=== PATIENT | female | born 1955 | race Caucasian/White ===

== ENCOUNTER 2017-09-26 18:23 | Emergency (ER) | payer BC ==
[2017-09-26 19:47] VITALS: BP 139/81
[2017-09-26] MEDS ORDERED: Ketorolac INJ* 60 MG/2 ML VIAL IM ONE (20:43)
[2017-09-26] MEDS ORDERED: predniSONE TAB* 20 MG PO ONE (20:43)
--- NOTE | 2017-09-26 20:51 | UC ---
Shoulder Pain HPI - HPI Summary HPI Summary: Pt c/o right shoulder and hand pain that began 4 days ago and now is a "50 out of 10 pain level". Pt states that she has arthritis and sometimes "it flares like this". - History of Current Complaint Chief Complaint: UCUpperExtremity Stated Complaint: RIGHT ARM PAIN Time Seen by Provider: 09/26/17 20:32 Hx Obtained From: Patient ?: No Onset/Duration: Gradual Onset, Lasting Days, Worse Since - onset Timing: Constant Severity Initially: Mild Severity Currently: Severe Pain Intensity: 10 Character: Dull, Aching, Stiffness Aggravating Factor(s): Movement Alleviating Factor(s): Nothing Associated Signs And Symptoms: Positive: Weakness Related History: Dominant Hand Right - Risk Factors Non-Orthopedic Risk Factor: Negative Septic Arthritis Risk Factor: Negative - Allergies/Home Medications Allergies/Adverse Reactions: Allergies Allergy/AdvReac Type Severity Reaction Status Date / Time codeine AdvReac LIGHT Verified 09/26/17 19:33 HEADED Home Medications: Home Medications Acetaminophen TAB* [Tylenol TAB*] 375 mg PO Q6H PRN 09/26/17 [History Confirmed 09/26/17] Cholecalciferol TAB* [Vitamin D TAB*] 1 tab PO DAILY 09/26/17 [History Confirmed 09/26/17] Gabapentin [Neurontin] 200 mg PO DAILY 09/26/17 [History Confirmed 09/26/17] Gabapentin [Neurontin] 300 mg PO BID 09/26/17 [History Confirmed 09/26/17] Isabel Root 550 mg PO BID 09/26/17 [History Confirmed 09/26/17] PMH/Surg Hx/FS Hx/Imm Hx Previously Healthy: Yes - Surgical History Surgical History: Yes Surgery Procedure, Year, and Place: c -sect x4, fallopian tubes - Family History Known Family History: Positive: Cardiac Disease - Social History Occupation: Employed Full-time Lives: With Family Alcohol Use: Rare Substance Use Type: None Smoking Status (MU): Never Smoked Tobacco Have You Smoked in the Last Year: No Review of Systems Constitutional: Negative Skin: Negative Eyes: Negative ENT: Negative Respiratory: Negative Cardiovascular: Negative Gastrointestinal: Negative Genitourinary: Negative Motor: Decreased ROM - right shoulder and hand Neurovascular: Negative Musculoskeletal: Arthralgia, Decreased ROM Neurological: Weakness Psychological: Negative Is Patient Immunocompromised?: No All Other Systems Reviewed And Are Negative: Yes Physical Exam Triage Information Reviewed: Yes Appearance: Pain Distress Vital Signs: Initial Vital Signs Temp 98.1 F 09/26/17 19:40 Pulse 80 09/26/17 19:40 Resp 20 09/26/17 19:40 BP 139/81 09/26/17 19:40 Pulse Ox 99 09/26/17 19:40 Vital Signs Reviewed: Yes Eye Exam: Normal ENT Exam: Normal Respiratory Exam: Normal Cardiovascular Exam: Normal Musculoskeletal: Positive: Strength Limited @, ROM Limited @ - right upper extremity Neurological Exam: Normal Psychological Exam: Normal Skin Exam: Normal Shoulder Course/Dx - Differential Dx/Diagnosis Differential Diagnosis/HQI/PQRI: Arthritis, Tendonitis Provider Diagnoses: right shoulder arthritis. right hand arthritis Discharge - Sign-Out/Discharge Documenting (check all that apply): Discharge - Discharge Plan Condition: Stable Disposition: HOME Prescriptions: predniSONE TAB* [Deltasone TAB*] 30 mg PO DAILY #6 tab Patient Education Materials: Arthralgia (ED), Shoulder Pain (ED) Referrals: Lazarus Huynh MD [Medical Doctor] - If Needed Margi Perry MD [Primary Care Provider] - - Billing Disposition and Condition Condition: STABLE Disposition: HOME
== END 2017-09-26 21:12 | disposition home or self-care (01) ==
LOC: UCCORT 18:23
DX: M19.011 Primary osteoarthritis, right shoulder (principal); M19.041 Primary osteoarthritis, right hand; Z88.5 Allergy status to narcotic agent
CPT/HCPCS: 96372; 99212; G0463; J1885; J7512

== ENCOUNTER 2017-11-24 08:28 | Emergency (ER) | payer BC ==
[2017-11-24 08:43] VITALS: BP 134/76
--- NOTE | 2017-11-24 09:03 | UC ---
Skin Complaint HPI - HPI Summary HPI Summary: Tick on right side of abdomen, unsure how long---there is blood at the location of the bite - History of Current Complaint Chief Complaint: UCSkin Time Seen by Provider: 11/24/17 08:48 Stated Complaint: TICK BITE Hx Obtained From: Patient ?: No Onset/Duration: Sudden Onset, Lasting Hours - 24-36?, Still Present Timing: Constant Pain Intensity: 0 Location: Discrete Character: Redness Aggravating Factor(s): Nothing Alleviating Factor(s): Nothing Associated Signs & Symptoms: Positive: Negative Related History: Possible Reaction to: Insect - Allergy/Home Medications Allergies/Adverse Reactions: Allergies Allergy/AdvReac Type Severity Reaction Status Date / Time codeine AdvReac LIGHT Verified 11/24/17 08:37 HEADED Review of Systems Constitutional: Negative Skin: Other Eyes: Negative ENT: Negative Respiratory: Negative Cardiovascular: Negative Gastrointestinal: Negative Genitourinary: Negative Motor: Negative Neurovascular: Negative Musculoskeletal: Negative Neurological: Negative Psychological: Negative Is Patient Immunocompromised?: No All Other Systems Reviewed And Are Negative: Yes PMH/Surg Hx/FS Hx/Imm Hx Previously Healthy: No - chronic back pain - Surgical History Surgical History: Yes Surgery Procedure, Year, and Place: c -sect x4, fallopian tubes - Family History Known Family History: Positive: Cardiac Disease - Social History Occupation: Works From/At Home Lives: With Family Alcohol Use: Rare Substance Use Type: None Smoking Status (MU): Never Smoked Tobacco Have You Smoked in the Last Year: No Physical Exam Triage Information Reviewed: Yes Appearance: Well-Appearing, No Pain Distress, Well-Nourished Vital Signs: Initial Vital Signs Temp 97.6 F 11/24/17 08:39 Pulse 88 11/24/17 08:39 Resp 16 11/24/17 08:39 BP 134/76 11/24/17 08:39 Pulse Ox 97 11/24/17 08:39 Vital Signs Reviewed: Yes Eye Exam: Normal Eyes: Positive: Conjunctiva Clear ENT Exam: Normal ENT: Positive: Normal ENT inspection, Hearing grossly normal. Negative: Trismus , Muffled voice, Hoarse voice Dental Exam: Normal Neck exam: Normal Neck: Positive: Supple, Nontender Respiratory Exam: Normal Respiratory: Positive: Chest non-tender, No respiratory distress, No accessory muscle use Cardiovascular Exam: Normal Cardiovascular: Positive: RRR, Pulses Normal, Brisk Capillary Refill Musculoskeletal Exam: Normal Musculoskeletal: Positive: Strength Intact, ROM Intact, No Edema Neurological Exam: Normal Neurological: Positive: Alert, Muscle Tone Normal Psychological Exam: Normal Skin Exam: Other Skin: Positive: Other - live tick attached in right side of abdomen Re-Evaluation - Re-Evaluation First Eval Change: Improved - Tick removed alive and intact by myself. Tic was engorged Course/Dx - Course Course Of Treatment: soap and water wash one tome dose of doxycycline, follow with pcp prn - Diagnoses Provider Diagnoses: tick bite with LYME PEP Discharge - Sign-Out/Discharge Documenting (check all that apply): Discharge/Admit/Transfer - Discharge Plan Condition: Stable Disposition: HOME Prescriptions: DOXYcycline CAP(*) [DOXYcycline 100MG CAP(*)] 200 mg PO ONCE #2 cap Patient Education Materials: Tick Bite (ED) Referrals: Margi Perry MD [Primary Care Provider] - If Needed - Billing Disposition and Condition Condition: STABLE Disposition: HOME
== END 2017-11-24 09:13 | disposition home or self-care (01) ==
LOC: UCCORT 08:28
DX: S30.861A Insect bite (nonvenomous) of abdominal wall, initial encounter (principal); W57.XXXA Bitten or stung by nonvenomous insect and other nonvenomous arthropods, initial encounter; Y93.9 Activity, unspecified; Y92.9 Unspecified place or not applicable; Z23 Encounter for immunization; Z88.5 Allergy status to narcotic agent
CPT/HCPCS: 99212; G0463

== ENCOUNTER 2017-12-12 09:57 | Emergency (ER) | payer BC ==
--- NOTE | 2017-12-12 10:48 | UC ---
UC General HPI - HPI Summary HPI Summary: Pt presents with c/o chest pain, weakness, sinus congestion, cough, and abscessed tooth. Pt has history of GERD and only 2 days ago began taking omeprazole twice daily and has not taken any today. Pt has know tooth abscess, does not know what antibiotic she is taking. Pt has c/o nasal congestion and sinus pressure and left ear feeling "plugged" - History of Current Complaint Stated Complaint: CHEST PAINS/WEAK Time Seen by Provider: 12/12/17 09:58 Hx Obtained From: Patient Onset/Duration: Gradual Onset, Lasting Days, Still Present Onset Severity: Mild Current Severity: Mild Pain Intensity: 2 Associated Signs & Symptoms: Positive: Cough, Chest Pain, Weakness - Allergy/Home Medications Allergies/Adverse Reactions: Allergies Allergy/AdvReac Type Severity Reaction Status Date / Time codeine AdvReac LIGHT Verified 12/12/17 10:14 HEADED Home Medications: Home Medications Omeprazole CAP* [Prilosec CAP* 20 MG] 20 mg PO DAILY 12/12/17 [History Confirmed 12/12/17] PMH/Surg Hx/FS Hx/Imm Hx Previously Healthy: Yes - Surgical History Surgical History: Yes Surgery Procedure, Year, and Place: c -sect x4, fallopian tubes - Family History Known Family History: Positive: Cardiac Disease - Social History Occupation: Retired Lives: With Family Alcohol Use: Rare Substance Use Type: None Smoking Status (MU): Never Smoked Tobacco Have You Smoked in the Last Year: No Review of Systems Constitutional: Fatigue Skin: Negative Eyes: Negative ENT: Ear Ache, Sinus Congestion, Sinus Pain/Tenderness Respiratory: Cough Cardiovascular: Negative Gastrointestinal: Negative Genitourinary: Negative Motor: Negative Neurovascular: Negative Musculoskeletal: Negative Neurological: Negative Psychological: Negative Is Patient Immunocompromised?: No All Other Systems Reviewed And Are Negative: Yes Physical Exam Triage Information Reviewed: Yes Appearance: Ill-Appearing Vital Signs: Initial Vital Signs Temp 98.1 F 12/12/17 10:07 Pulse 96 12/12/17 10:07 Resp 16 12/12/17 10:07 BP 173/91 12/12/17 10:07 Pulse Ox 96 12/12/17 10:07 Vital Signs Reviewed: Yes Eye Exam: Normal ENT Exam: Other ENT: Positive: Nasal congestion, Sinus tenderness, Other - left ear canal cerumen Dental: Positive: Abscess @ Neck exam: Normal Respiratory Exam: Normal Cardiovascular Exam: Normal Musculoskeletal Exam: Normal Neurological Exam: Normal Psychological Exam: Normal Skin Exam: Normal Diagnostics - Radiology No standard instances Radiology Interpretation Completed By: Radiologist - IMPRESSION: NO ACTIVE CARDIOPULMONARY DISEASE. Course/Dx - Differential Dx - Multi-Symptom Provider Diagnoses: cerumen impaction. GERD. chest discomfort. rhino sinusitis. fatigue Discharge - Sign-Out/Discharge Documenting (check all that apply): Discharge/Admit/Transfer - Discharge Plan Condition: Stable Disposition: HOME Prescriptions: Fexofenadine/Pseudoephedrine [Millie-D 24 Hour Tablet] 1 each PO DAILY #10 tab.er.24h Patient Education Materials: Chest Pain (ED), Cerumen Impaction (ED), Rhinosinusitis (ED) Referrals: Maia Fulton MD [Medical Doctor] - Margi Perry MD [Primary Care Provider] - If Needed Additional Instructions: Please follow up with your PCP and please keep your appointment with your GI provider. - Billing Disposition and Condition Condition: STABLE Disposition: Home
[2017-12-12 10:55] VITALS: BP 136/86
--- NOTE | 2017-12-12 10:55 | RAD ---
HISTORY: cough, fatigue COMPARISONS: None VIEWS: 4: Frontal dual-energy and lateral views of the chest. FINDINGS: CARDIOMEDIASTINAL SILHOUETTE: The cardiomediastinal silhouette is normal. ISIDRA: The isidra are normal. PLEURA: The costophrenic angles are sharp. No pleural abnormalities are noted. LUNG PARENCHYMA: The lungs are clear. ABDOMEN: The upper abdomen is clear. There is no subphrenic gas. BONES AND SOFT TISSUES: No bone or soft tissue abnormalities are noted. OTHER: None. IMPRESSION: NO ACTIVE CARDIOPULMONARY DISEASE.
== END 2017-12-12 11:12 | disposition home or self-care (01) ==
LOC: UCCORT 09:57
DX: Z88.5 Allergy status to narcotic agent (principal); H61.22 Impacted cerumen, left ear; K21.9 Gastro-esophageal reflux disease without esophagitis; R07.89 Other chest pain; J32.9 Chronic sinusitis, unspecified
CPT/HCPCS: 71046; 93005; 99212; G0463

== ENCOUNTER 2018-11-18 14:26 | Emergency (ER) | payer BC ==
[2018-11-18 14:48] VITALS: BP 148/79
--- NOTE | 2018-11-18 15:06 | UC ---
Throat Pain/Nasal Benedict HPI - HPI Summary HPI Summary: 62-year-old woman comes in with a chief complaint of upper respiratory tract sinusitis infection symptoms for several days. She has rhinorrhea. She's also been having some wheezing. [id number] medications don't help very much. No recent fevers. - History of Current Complaint Chief Complaint: UCGeneralIllness Stated Complaint: COUGH,CONGESTION,TIDWELL Time Seen by Provider: 11/18/18 14:39 Pain Intensity: 10 - Allergies/Home Medications Allergies/Adverse Reactions: Allergies Allergy/AdvReac Type Severity Reaction Status Date / Time codeine AdvReac LIGHT Verified 12/12/17 10:14 HEADED PMH/Surg Hx/FS Hx/Imm Hx Previously Healthy: Yes GI/ History: Gastroesophageal Reflux - Surgical History Surgical History: Yes Surgery Procedure, Year, and Place: c -sect x4, fallopian tubes - Family History Known Family History: Positive: Cardiac Disease - Social History Alcohol Use: Rare Substance Use Type: None Smoking Status (MU): Never Smoked Tobacco Have You Smoked in the Last Year: No Review of Systems All Other Systems Reviewed And Are Negative: Yes Constitutional: Positive: Negative Skin: Positive: Negative Eyes: Positive: Negative ENT: Positive: Nasal Discharge, Sinus Congestion Respiratory: Positive: Cough, Other - see hpi Cardiovascular: Positive: Negative Gastrointestinal: Positive: Negative Motor: Positive: Negative Neurovascular: Positive: Negative Musculoskeletal: Positive: Negative Neurological: Positive: Negative Psychological: Positive: Negative Is Patient Immunocompromised?: No Physical Exam Triage Information Reviewed: Yes Appearance: No Pain Distress, Well-Nourished, Ill-Appearing - mild Vital Signs: Initial Vital Signs Temp 98.6 F 11/18/18 14:40 Pulse 98 11/18/18 14:40 Resp 18 11/18/18 14:40 BP 148/79 11/18/18 14:40 Pulse Ox 97 11/18/18 14:40 Vital Signs Reviewed: Yes Eye Exam: Normal ENT: Positive: Pharyngeal erythema, Nasal congestion, Nasal drainage, TMs normal Neck: Positive: Supple Respiratory: Positive: Lungs clear, Normal breath sounds, No respiratory distress Cardiovascular: Positive: RRR Musculoskeletal Exam: Normal Musculoskeletal: Positive: Strength Intact, ROM Intact Neurological Exam: Normal Neurological: Positive: Alert Psychological Exam: Normal Psychological: Positive: Age Appropriate Behavior Skin Exam: Normal Throat Pain/Nasal Course/Dx - Course Course Of Treatment: DISCUSSED VIRAL VERSES BACTERIAL INFECTION AND THE ROLE OF ANTIBIOTICS. THE PATIENT PREFERS TO BE ON ANTIBIOTICS AT THIS TIME. - Differential Dx/Diagnosis Provider Diagnosis: Sinusitis, Bronchospasm Discharge - Sign-Out/Discharge Documenting (check all that apply): Patient Departure All imaging exams completed and their final reports reviewed: No Studies - Discharge Plan Condition: Stable Disposition: HOME Prescriptions: Albuterol HFA INHALER* [Ventolin HFA Inhaler*] 2 puff INH Q4H PRN #1 mdi PRN Reason: Wheezing Amoxicillin PO (*) [Amoxicillin 875 MG (*)] 875 mg PO BID #20 tab Patient Education Materials: Sinusitis (ED), Bronchospasm (ED) Forms: *Work Release Referrals: Mesha Salas [Primary Care Provider] - Additional Instructions: FOLLOW UP WITH YOUR DOCTOR IF NOT COMPLETELY IMPROVED. GET RECHECKED SOONER IF YOUR CONDITION WORSENS OR ANY QUESTIONS OR CONCERNS. - Billing Disposition and Condition Condition: STABLE Disposition: Home
== END 2018-11-18 15:14 | disposition home or self-care (01) ==
LOC: UCCORT 14:26
DX: J32.9 Chronic sinusitis, unspecified (principal); J98.01 Acute bronchospasm; Z88.5 Allergy status to narcotic agent
CPT/HCPCS: 99212; G0463